=== PATIENT | female | born 1985 | race Caucasian/White ===

== ENCOUNTER 2018-02-13 20:37 | Emergency (ER) | payer MEDICAID ==
[~2018-02-13] VITALS: Ht 167.6 cm; Wt 68.0 kg
[2018-02-13] MEDS ORDERED: ZOLOFT100 MG (20:54)
[2018-02-13] MEDS ORDERED: BUSPIRONE HCL10 MG PO ×2 (20:54)
== END 2018-02-13 22:57 | disposition home or self-care (01) ==
LOC: ED 20:37
DX: T14.91XA Suicide attempt, initial encounter (principal); Z79.899 Other long term (current) drug therapy
CPT/HCPCS: 80053; 80176; 81001; 84443; 84703; 85025; 99284; G0480